=== PATIENT | male | born 1980 | race Two or more races ===

== ENCOUNTER 2022-08-27 12:15 | Emergency (ER) | payer OTHER ==
[~2022-08-27] VITALS: Ht 165.1 cm; Wt 73.0 kg
[2022-08-27 12:21] VITALS: BP 130/89
[2022-08-27] MEDS ORDERED: KETOROLAC 30MG/ML VIAL IM ONE (14:00)
[2022-08-27] MEDS ORDERED: DEXAMETHASONE 4MG/ML 1ML VIAL IM ONE (14:00)
[2022-08-27] MEDS ORDERED: DIAZEPAM 2 MG TABLET PO ONE (14:00)
[2022-08-27] MEDS ORDERED: NAPR-1176 MT (15:03)
[2022-08-27] MEDS ORDERED: CYCL10TA21 MT (15:03)
== END 2022-08-27 15:53 | disposition home or self-care (01) ==
LOC: ER 12:15
DX: S39.012A Strain of muscle, fascia and tendon of lower back, initial encounter (principal); X58.XXXA Exposure to other specified factors, initial encounter; Y93.89 Activity, other specified; Y92.89 Other specified places as the place of occurrence of the external cause; Y99.8 Other external cause status; F32.9 Major depressive disorder, single episode, unspecified; E78.00 Pure hypercholesterolemia, unspecified; I10 Essential (primary) hypertension
CPT/HCPCS: 96372; 99284; J1100; J1885